=== PATIENT | male | born 1945 | race Caucasian/White ===

== ENCOUNTER 2017-04-25 00:11 | Day surgery (SDC) | payer MEDICARE, OTHER ==
[~2017-04-25] VITALS: Ht 168.9 cm; Wt 81.0 kg
[~2017-04-25 00:11] MED LIST: APIX5TAB PO; ASPI-973 PO; DIGO125T73 PO; FENO160T7 PO; LATA2.5D5 BOTH_EYES; LOSA50TA37 PO; METO-272 PO; METO25TA99 PO; PRV40T PO; TIMO1DRO3 AFFECT_EYE
[2017-04-25 10:19] LABS: BASOPHILS % (AUTO) 0.5 % (0-3); EOSINOPHILS % (AUTO) 2.1 % (0-5); MONOCYTES % (AUTO) 10.2 % (4-12); Mean Corpuscular Hemoglobin 33.3 pg (27.0-35.0); Mean Corpuscular Volume 94.7 fL (81-100); NEUTROPHILS % (AUTO) 57.8 % (40-74); Platelet Count 266 bil/L (150-400)
[2017-04-25 10:31] LABS: INR 0.98 ratio
[2017-04-25 10:46] VITALS: BP 154/82; PULSE 75; RESP 13; O2SAT 94
--- NOTE | 2017-04-25 11:44 | NUR ---
Patient has been admitted through [facility] today for a planned lead revision of his ICD. Unfortunately patient has not been pre-treated for a probable contrast allergy - noted after patient had a true anaphylaxis event following ingesting crab. Patient is not sure if he had ever been pre-treated for all of his other Vascular procedures - Dr Logan has re-scheduled this patient for May 11. Pre-treatment medication instructions, Instructions to hold Eliquis 5mg - on the night of May 10 and the morning of May 11. NPO after midnight on May 10. Patient and family understand discharge instructions and will return to [facility] for his procedure on May 11 with a check in time of 10 AM/procedure at 1200. Dr Logan would like lab drawn with IV start on May 11 - orders written to reflect this. Permit for procedure still needs to be signed by the patient on May 11.
[2017-04-25] MEDS ORDERED: Vancomycin Inj 1,250 MG in 0.9% Sodium Chloride 250 ML IV SCH (12:08)
== END 2017-04-25 23:59 | disposition home or self-care (01) ==
LOC: SOUO 00:11
PROVIDERS: ATTEND Internal Medicine Cardiovascular Disease
DX: T82.110A Breakdown (mechanical) of cardiac electrode, initial encounter (principal); Z53.09 Procedure and treatment not carried out because of other contraindication; Z91.041 Radiographic dye allergy status

== ENCOUNTER 2017-05-11 00:55 | Day surgery (SDC) | payer MEDICARE, OTHER ==
[~2017-05-11] VITALS: Ht 168.9 cm; Wt 81.3 kg
[2017-05-11] VITALS (14 sets, daily range): BP systolic 111–138; BP diastolic 49–74; PULSE 60–66; RESP 15–21; O2SAT 91–97
[2017-05-11] MEDS ORDERED: 0.9% Sodium Chloride 1,000 ML IV PRN (07:13)
[2017-05-11] MEDS ORDERED: Vancomycin Inj 1,000 MG in IV Premix 1 EACH IV ONE (07:15)
[2017-05-11 10:39] LABS: BASOPHILS % (AUTO) 0 % (0-3); EOSINOPHILS % (AUTO) 0 % (0-5); MONOCYTES % (AUTO) 3.2 % (4-12); Mean Corpuscular Hemoglobin 32.5 pg (27.0-35.0); NEUTROPHILS % (AUTO) 83.6 % (40-74); Platelet Count 231 bil/L (150-400)
--- NOTE | 2017-05-11 10:48 | NUR ---
MAURA ADMIT 71 YEAR OLD MALE ADMITTED FOR ICD LEAD REPLACEMENT TODAY AT 1000. IVS STARTED, LABS SENT, AND CONSENT IS SIGNED. PT TOOK PRE MEDICATIONS PRESCRIBED FOR CONTRAST ALLERGY.
[2017-05-11] MEDS ORDERED: Heparin 10,000 Unit/1,000 mL NS Premix IV ONE (10:53)
[2017-05-11] MEDS ORDERED: Water for Injection 50 ML IV ONE (10:54)
[2017-05-11] MEDS ORDERED: 0.9% Sodium Chloride 250 ML ONE (10:54)
[2017-05-11] MEDS ORDERED: Vancomycin 1,000 mg Inj ONE (10:54)
[2017-05-11] MEDS ORDERED: Bupivacaine-MPF 0.5% 30 mL Inj ONE (10:54)
[2017-05-11] MEDS ORDERED: fentaNYL-PF 50 mCg/mL 2 mL Inj ONE (11:59)
[2017-05-11] MEDS ORDERED: Ondansetron 2 mg/mL 2 mL Inj IVPUSH PRN (13:20)
[2017-05-11] MEDS: 0.9% Sodium Chloride 1,000 ML IV SCH ×2 (13:20→23:20)
--- NOTE | 2017-05-11 14:33 | OP ---
[address] [address] OPERATIVE REPORT PATIENT: KARLA MCMAHAN : 1945 MR#: [id number] ADMIT: 05/11/2017 JOB ID: [id number] DATE OF SURGERY: 05/11/2017 PREOPERATIVE DIAGNOSIS(ES): 1. Right ventricular ICD lead failure. 2. Severe cardiomyopathy. 3. Dual-chamber ICD in place. POSTOPERATIVE DIAGNOSIS(ES): 1. Right ventricular ICD lead failure. 2. Severe cardiomyopathy. 3. Dual-chamber ICD in place. PROCEDURES PERFORMED: 1. New right ventricular ICD lead placement. 2. Left upper extremity venogram. 3. Fluoroscopy. SURGEON: [employer]: Aaron Logan MD, electrophysiology attending. BESSEMER REGULATOR: Quincy Buchanan. IMPLANTED DEVICE: [employer] RV lead model 7122Q, 58 cm, serial number [id number]. CHRONIC DEVICES: 1. [employer] pulse generator: Model CP4909-23I, serial number [id number]. 2. Right atrial lead: [employer] 2088Q, 52 cm, serial number [id number]. 3. Right ventricular lead: [employer] 7122Q, 58 cm, serial number [id number] (capped, nonusable). ANESTHESIA: Bolus dosing of Versed and fentanyl was utilized for the appropriate level of sedation. INDICATION: The patient is a pleasant 71-year-old man with severe cardiomyopathy, dual-chamber ICD in place. His RV ICD lead his failed with high impedance and threshold. After discussion of the risks and benefits of new lead insertion, he opted to proceed. PROCEDURE DESCRIPTION: Following informed consent, the patient was taken to the EP laboratory in the fasting nonsedated state where he was prepped and draped in the usual sterile fashion. A left upper extremity venogram confirmed patency of the left subclavian venous drainage system with some tortuosity and some varicosities. The left infraclavicular surgical scar was infiltrated with 40 cc of a 50/50 mixture of bupivacaine and lidocaine. Once adequate sedation had been achieved, a 4 cm transverse incision was performed 2 cm below the clavicle. Dissection was carried down to the capsule and the generator freed loose of adhesions. Then, under fluoroscopic and radiographic guidance, the left axillary vein was cannulated over the first rib with a micropuncture needle to deploy a 0.035, 3 mm J guidewire. Over this, a 7-Sami tear-away sheath was advanced. Once the sheath was removed, an active fixation RV ICD lead was advanced to the RV outflow tract and ultimately the RV apex. The lead was affixed in position using the associated active fixation screw. It was connected to the external analyzer and demonstrated appropriately sensed R waves and impedance. Capture threshold was checked to 10 V and there was no evidence of diaphragmatic stimulation. Once the position and redundancy of the lead was performed, along with multiple fluoroscopic views, the lead was anchored to the prepectoralis fascia using the associated anchoring sleeve and two Ethibond sutures. The pocket was copiously irrigated with antibiotic solution. The new lead was connected to the chronic generator. The chronic atrial lead was left in place. The chronic bad RV ICD lead was capped and secured to the floor of the capsule using 1-0 Ti-Cron suture. The incision was then closed with running layers of absorbable suture. The wound was dressed with skin adhesive and a small dressing. At the end of procedure the needle, sponge, and instrument counts were all correct. COMPLICATIONS: None. ESTIMATED BLOOD LOSS: Negligible. DEVICE MEASURED DATA: 1. Right atrial lead: 2.1 mV, 410 ohms, 0.75 V at 0.4 msec. 2. RV lead: 11.7 mV, 610 ohms, 0.75 V at 0.4 msec. FINAL PROGRAM PARAMETERS: 1. DDDR 60-130 beats per minute. 2. VF zone at 187 beats per minute with ATP during charge maximum output shocks. 3. VT monitor zone 150 beats per minute. IMPRESSION: Successful RV ICD lead insertion. PLAN: 1. Stat portable chest x-ray. 2. PA and lateral chest x-ray in the morning. 3. Device interrogation in the morning. 4. IV vancomycin through tomorrow. 5. Doxycycline x7 days. 6. Wound check in one week. ATTENDING STATEMENT: Aaron Logan MD, electrophysiology attending, was present for and supervised/performed all aspects of this procedure.
--- NOTE | 2017-05-11 16:13 | NUR ---
[facility] TRANSFER PT WAS RECEIVED FROM YOUTH MANAGER AT 1350. LEFT UPPER CHEST DRSG HAS REMAINED C/D/I. POST EKG AND CXR WERE DONE. PT DENIES ANY PAIN AND IS TAKING MEAL AND FLUIDS WITHOUT DIFFICULTY. BEDREST COMPLETED, SLING PLACED TO LEFT ARM AND PT AMBULATED TO BR. REPORT GIVEN TO LASHAWN Estrada RN AND PT AND HIS NURSING CARE WERE TRANSFERRED TO ROOM 2003 AT 1605. TELE CONFIRMED WITH INSURANCE SALES ASSISTANT.
--- NOTE | 2017-05-11 16:21 | NUR ---
P:Pain I: Received report from [facility] nurse. Pt brought to 2002 in wheelchair. Pt up independently with sling on. Dressing on left chest dry and intact. HOB elevated 30 degrees. Saline locks patent without redness or swelling at the site. Voided in MAURA and UA sent. Taking diet and fluids well. Denies pain at this time. E:Stable S: Alert and oriented. Uses call light appropriately. Frequent rounding.
--- NOTE | 2017-05-11 17:02 | DRSVH ---
PROCEDURE: X-RAY CHEST ONE VIEW, PORTABLE ([id number]) INDICATIONS: For new leads placed TECHNIQUE: One view of the chest was acquired. COMPARISON: [facility], CR, CHEST 2VW, 09/06/2014, 9:00. [facility], CR, CH EST 1VW (PORTABLE), 09/05/2014, 15:24. FINDINGS: Surgical changes and devices: Post median sternotomy and valvular replacement. Left chest AICD prese nt in expected position. Lungs and pleura: No pleural effusions or pneumothorax. Lungs are clear. Mediastinum: Mediastinal contours appear normal. Heart size is prominent. Bones and chest wall: No suspicious bony lesions. Overlying soft tissues appear unremarkable. IMPRESSION: No immediate complications status post cardiac pacemaker placement. Dictated by: Richard GOLDSMITH Interpreted: Mitzy Kessler MD on 05/11/2017 at 14:41 Approved by: Mitzy Kessler M.D. on 05/11/2017 at 16:59
[2017-05-11 19:06] LABS: APPEARANCE,URINE HAZY (CLEAR,HAZY); COLOR,URINE YELLOW (YELLOW); OCCULT BLOOD,URINE NEGATIVE (NEGATIVE); UROBILINOGEN,URINE NORMAL (NORMAL)
[2017-05-11] MEDS ORDERED: MeTOProlol XL 25 mg ER24 Tablet PO SCH (21:00)
[2017-05-12] MEDS ORDERED: 0.9% Sodium Chloride 100 ML ONE (01:13)
[2017-05-12] MEDS ORDERED: Vancomycin Inj 1,000 MG in IV Premix 1 EACH IV ONE (01:20)
[2017-05-12 03:18] VITALS: BP 140/84; PULSE 57; RESP 16; O2SAT 94
[2017-05-12 05:53] VITALS: BP 168/81; PULSE 57; RESP 20; O2SAT 96
[2017-05-12 06:23] VITALS: BP 154/85
--- NOTE | 2017-05-12 07:06 | NUR ---
Pain/Dressing/Swelling A&O x3 using call light appropriately, no S/S of swelling of bleeding until 0500, Pt noted swelling and heat at site under dressing, charge was called , a pressure dressing was fashioned as well as 5 Lb sand bag added , BP 168/81 Tele , 100 % paced [address] Mane was called , orders were written to increase Losartan dosage to 100 Mg and give morning dose immediately. Pt was transported to X-Ray in wheel chair with no difficulty. 13 beats V-Tach @ 0200 , a-symptomatic
[2017-05-12 08:24] VITALS: BP 163/90; PULSE 60; RESP 16; O2SAT 98
[2017-05-12] MEDS ORDERED: MeTOProlol XL 50 mg ER24 Tablet PO SCH (08:30)
--- NOTE | 2017-05-12 09:18 | PCM.DIMED ---
Discharge Instructions Date of Service May 12, 2017 Dates of Hospitalization Discharge Diagnosis Discharge Diagnosis Ischemic Cardiomyopathy Ventricular Tachycardia Hypertension Paroxysmal Atrial Fibrillation ICD RV Lead Malfunction - High Capture Threshold ICD RV Lead Replacement - 05-11-17 Diet Discharge Diet: Low fat, Low Sodium, Heart Healthy Activity Discharge Activity: Other (Do not extend left elbow high above shoulder for one month. Do not lift, push or pull more that 10 lbs for one month.) Call your provider Call your provider for: Fever or Chills, Bleeding, Excessive diarrhea Patient Instructions Follow-up in: 1 week Mid-level Provider (F9): Silverio Blandon PA-C Follow-up with Mid-level in: 6 weeks Silverio Blandon PA-C May 12, 2017 09:18
[2017-05-12] MEDS: 0.9% Sodium Chloride 1,000 ML IV SCH (09:20)
[2017-05-12] MEDS ORDERED: CEPH500C PO (09:21)
[2017-05-12 09:59] VITALS: PULSE 63
--- NOTE | 2017-05-12 12:03 | NUR ---
Discharge Pt had two IV's taken out of his forearms, catheters intact. Pt has f/u appnts made, verbalizes understanding of instructions and not to use his left arm . Patient left via POV accompanied by spouse.
--- NOTE | 2017-05-12 12:17 | DIS ---
[address] [address] DISCHARGE SUMMARY PATIENT: KARLA MCMAHAN : 1945 MR#: [id number] ADMIT: 05/11/2017 JOB ID: [id number] DIS: 05/12/2017 REASON FOR ADMISSION: ICD ventricular lead replacement. CHIEF COMPLAINT: "My defib lead has gone bad." HISTORY: The patient is a pleasant 71-year-old man with a history of ischemic cardiomyopathy, old inferior LA, prior bypass surgery and a dual-chamber ICD in place since November 2010. After six years, beginning in November 2016, the RV lead impedance began to progressively climb from 360 ohms to 1000 ohms and the RV capture threshold increased from 1.5 V at 0.4 msec to 2.5 V at 1.2 msec. He is not pacemaker dependent and so, loss of capture did not cause symptoms. The output was set up to 4 V, and he eventually lost capture again even at 4 V. He was advised of this matter and scheduled for device replacement. COURSE IN HOSPITAL: The patient was admitted through the [facility] and taken to the catheterization laboratory, where the ICD RV lead was tested and found to have a high threshold. A new ICD lead was inserted without incident. The procedure was completed without complications. Then, he was transferred back to the [facility] for recovery from sedation. He was then transferred up to the [facility] for overnight care and did well overnight. In the morning at around 4 or 5 a.m. he began to notice some increased size in the ICD pocket. A pressure dressing was applied, and a 5-pound sandbag was placed over that for 4 hours. Afterward, the sandbag and bandaging were removed and the ICD site looked stable. There was some soft puffiness around the ICD but no hard hematoma and no extensive ecchymosis. He felt well for discharge home. He had no complaints of lightheadedness or pain. DISPOSITION: The patient was discharged home in good condition with a followup appointment at the [facility] Cardiology office in one week. He was advised not to extend his left elbow high above his shoulder for one month and not to lift, push, or pull more than 10 pounds with the left arm for one month. He will follow his heart healthy and low sodium, low fat diets, and take medications as prescribed. DISCHARGE MEDICATIONS: 1. Cephalexin 500 mg b.i.d. 2. Eliquis 5 mg b.i.d. 3. Aspirin 81 mg daily. 4. Digoxin 125 mcg daily. 5. Triglide 160 mg daily. 6. Losartan 50 mg b.i.d. 7. Metoprolol succinate 50 mg in the morning and 75 mg in the evening. 8. Pravastatin 40 mg daily. FINAL DIAGNOSES: 1. Ischemic cardiomyopathy. 2. Ventricular tachycardia. 3. Hypertension. 4. Paroxysmal atrial fibrillation. 5. Implantable cardioverter defibrillator right ventricular lead malfunction -- high capture threshold; implantable cardioverter defibrillator right ventricular lead replacement on May 11, 2017.
--- NOTE | 2017-05-12 14:32 | DRSVH ---
PROCEDURE: X-RAY CHEST, TWO VIEWS ([id number]) INDICATIONS: For new lead placement TECHNIQUE: 2 views of the chest were acquired. COMPARISON: [facility], CR, XR CHEST 1VW (PORTABLE), 05/11/2017, 14:01. [facility], CR, CHEST 2VW, 09/06/2014, 9:00. FINDINGS: Surgical changes and devices: Post median sternotomy and valvular replacement. Stable positioning of left chest AICD. Lungs and pleura: No pleural effusions or pneumothorax. Lungs are clear. Mediastinum: Mediastinal contours are normal. Heart size is enlarged. Bones and chest wall: No suspicious bony abnormalities. Soft tissues appear unremarkable. IMPRESSION: Stable chest post pacer placement. Dictated by: Richard GOLDSMITH Interpreted: Shelia Bowman MD on 05/12/2017 at 9:08 Approved by: Shelia Bowman M.D. on 05/12/2017 at 14:30
== END 2017-05-12 11:45 | disposition home or self-care (01) ==
LOC: SOUO 00:55 → PCC 16:01 → SOUO 05-12 11:45
PROVIDERS: ATTEND Internal Medicine Cardiovascular Disease
DX: T82.110A Breakdown (mechanical) of cardiac electrode, initial encounter (principal); I25.5 Ischemic cardiomyopathy; I25.2 Old myocardial infarction; I48.0 Paroxysmal atrial fibrillation; I10 Essential (primary) hypertension; E78.5 Hyperlipidemia, unspecified; Z95.5 Presence of coronary angioplasty implant and graft; Z95.1 Presence of aortocoronary bypass graft; Z87.891 Personal history of nicotine dependence; Z79.01 Long term (current) use of anticoagulants; Z79.82 Long term (current) use of aspirin; Y71.2 Prosthetic and other implants, materials and accessory cardiovascular devices associated with adverse incidents
CPT/HCPCS: 33216; 36415; 71010; 71020; 80048; 81000; 85025; 85610; 93005; 99152; 99153; C1769; C1777; C1892; J1644; J2250; J3010; J3370; J7050

== ENCOUNTER 2017-05-20 14:17 | Emergency (ER) | payer MEDICARE, OTHER ==
[~2017-05-20] VITALS: Ht 167.6 cm; Wt 82.3 kg
[~2017-05-20 14:17] MED LIST changes: +CEPH500C PO; -LATA2.5D5 BOTH_EYES; -TIMO1DRO3 AFFECT_EYE
[2017-05-20 14:32] VITALS: BP 113/76; PULSE 58; RESP 14; O2SAT 97
--- NOTE | 2017-05-20 15:02 | ED.REPORT ---
HPI-General Illness Date of Service May 20, 2017 ED Provider: Benigno Leo DO The patient is a 71 year old male with history ischemic cardiomyopathy, s/p pacemaker and recent wire replacement (05/12), atrial fibrillation, coronary artery disease, CHF, and hypertension, who presents to the emergency department complaining of oozing from a surgical site. The patient had a wire replaced on his pacemaker on April. He has noticed some drainage from the site since the surgery. He was seen by his accounting auditor yesterday who was able to express a moderate amount of material from the site. A bandage was placed yesterday and he was told to be evaluated if there was more drainage this morning (today). The patient is currently taking cephalexin. He denies fever, chills, pain around the site, chest pain or palpitations. 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 without premedication iodine (Verified Allergy, Severe, 05/20/17) breathing problems and swelling lisinopril (Verified Allergy, Severe, angioedema, 05/20/17) hydrocodone (Verified Adverse Reaction, Intermediate, sick to stomach, ) Scheduled Apixaban (Eliquis) 5 Mg Tablet 5 MG PO BID Aspirin (Aspirin) 81 Mg Tablet 81 MG PO DAILY Cephalexin (Cephalexin) 500 Mg Capsule 500 MG PO BID Digoxin (Digoxin) 125 Mcg Tablet 125 MCG PO DAILY Fenofibrate Nanocrystallized (Triglide) 160 Mg Tablet 160 MG PO DAILY Losartan Potassium (Losartan Potassium) 50 Mg Tablet 50 MG PO BID Metoprolol Succinate ER (Metoprolol Succinate ER) 50 Mg Tab.er.24h 50 MG PO DAILY Metoprolol Succinate ER (Metoprolol Succinate ER) 25 Mg Tab.er.24h 25 MG PO QPM Take with 50mg tablet for total of 75mg Pravastatin (Pravachol) 40 Mg Tab 40 MG PO HS General Time Seen by MD: 15:00 Chief Complaint Other (drainage from surgical site) Hx Obtained From: Patient Arrived By: Walk-in Sudden in Onset?: Yes Onset Occurred: 1 week ago Symptom Duration: Since onset Severity: Current: No pain currently Severity: Maximum: No pain Recent Healthcare: Recent doctor visit, Recent hospitalization Similar Sx Previous: No Past Medical History Past Medical History 1. Ischemic cardiomyopathy. 2. Ventricular tachycardia. 3. Hypertension. 4. Paroxysmal atrial fibrillation. 5. Implantable cardioverter defibrillator right ventricular lead 6. CHF 7. Coronary artery disease Past Surgical History Pacemaker Pacemaker wire replacement April 2017 Mitral valve replacement CABG Family History Noncontributory Smoking History Former Smoker Social History Other Social History: Local resident Ambulatory Status Independent Review of Systems +suture problem, drainage from site -pain around site Full Review of Systems Constitutional: Denies: Chills, Fever Cardiovascular: Denies: Chest pain, Palpitations Complete sys rev & neg: except as marked. Physical Exam Vital Signs Vital Signs Date Time Temp Pulse Resp B/P Pulse Ox O2 Delivery O2 Flow Rate FiO2 05/20/17 15:34 58 14 134/81 98 Room Air 05/20/17 14:37 36.7 05/20/17 14:32 58 14 113/76 97 Room Air Initial VS: Reviewed Head / Eyes: Atraumatic, Normocephalic, PERRL ENT: Mucous membranes moist, Conjunctiva normal, No scleral icterus Neck: Supple, Non-tender, Full range of motion Respiratory: Breath sounds normal, Clear to auscultation, No respiratory distress Cardiovascular: Regular rate & rhythm, Heart sounds normal, Intact distal pulses Abdomen / GI: Soft, Non-tender, No guarding, No rebound, No distention Lymphatic: No lymphadenopathy Extremities: Vascular intact, Neuro intact, No swelling, No tenderness Neurologic: Alert, Oriented, Nonfocal Psychiatric: Mood/affect normal, Behavior normal, Normal thought content General/Constitutional: Awake, Alert, No acute distress, Cooperative Skin: Warm, Dry Pacemaker site has surrounding ecchymosis. There is no warmth, fluctuance, crepitus or tenderness. The incision site looks clean. There is some crusted blood underneath a layer of dermabond. There is no active bleeding. Re-Eval/Medical Decision Med Decision/Clinical Course No obvious signs of infection and no obvious bleeding at this time. Patient reassured. Return and follow-up precautions given. Source of Hx: Old records Re-Evaluation/Progress Note: Discussed exam findings, diagnosis, and plan for discharge. All questions were addressed. Counseled Regarding: Diagnosis, Need for follow-up, When/why to return to ED Discharge & Departure Primary Impression: Drainage from wound Disposition: Home Discharge Condition All VS Reviewed: Yes Condition: Stable Additional Instructions: Thank you for entrusting us with your care today. Your evaluation today is reassuring. There is no evidence of an acute infection at this time. Continue to take the cephalexin as previously prescribed. Followup with your accounting auditor as needed. Return to the emergency department if the site becomes red, swollen, painful, or hard, or if you develop fever, chills, nausea, vomiting, or any other new or concerning symptoms. Referrals: Lisbet Abrams (PCP) Scribe Attestation Portions of this note were transcribed by Jessica Mcintosh. I, Dr. Leo personally performed the history, physical exam and medical decision-making; I reviewed and confirmed the accuracy of the information in the transcribed note. Signed by: Karely Castellanos, 05/20/2017 at 1600. copies to: Lisbet Abrams Timothy S DO May 20, 2017 15:02 Jessica Mcintosh May 20, 2017 15:12
[2017-05-20 15:34] VITALS: BP 134/81; PULSE 58; RESP 14; O2SAT 98
== END 2017-05-20 15:34 | disposition home or self-care (01) ==
LOC: SED 14:17
DX: T81.89XA Other complications of procedures, not elsewhere classified, initial encounter (principal); Y71.2 Prosthetic and other implants, materials and accessory cardiovascular devices associated with adverse incidents; Y92.9 Unspecified place or not applicable; Y93.89 Activity, other specified; Y99.8 Other external cause status; I25.5 Ischemic cardiomyopathy; I48.0 Paroxysmal atrial fibrillation; I25.10 Atherosclerotic heart disease of native coronary artery without angina pectoris; I50.9 Heart failure, unspecified; I10 Essential (primary) hypertension; Z95.0 Presence of cardiac pacemaker; Z98.890 Other specified postprocedural states; Z95.1 Presence of aortocoronary bypass graft; Z87.891 Personal history of nicotine dependence; Z79.82 Long term (current) use of aspirin; Z91.041 Radiographic dye allergy status; Z88.5 Allergy status to narcotic agent; Z88.8 Allergy status to other drugs, medicaments and biological substances